=== PATIENT | male | born 1930 | race Caucasian/White ===

== ENCOUNTER 2017-09-21 12:40 | Emergency (ER) | payer OTHER ==
[~2017-09-21] VITALS: Ht 188 cm; Wt 57.0 kg
[~2017-09-21 12:40] MED LIST: CIPR500T87 PO
[2017-09-21 13:39] LABS: ANION GAP 9 mmol/L (5-15); CALCIUM 8.5 mg/dL (8.5-10.1); CHLORIDE 104 mmol/L (98-107); CREATININE 0.86 mg/dL (0.7-1.3)
[2017-09-21 13:44] LABS: BASOPHILS # (AUTO) 0.03 x10^3/uL (0-0.1); BASOPHILS % (AUTO) 0 % (0-1); EOSINOPHILS # (AUTO) 0.11 x10^3/uL (0-0.4); EOSINOPHILS % (AUTO) 1 % (1-7); LYMPHOCYTES # (AUTO) 1.26 x10^3/uL (1-3.4); LYMPHOCYTES % (AUTO) 11 % (22-44); MD NO; MEAN CORPUSCULAR HEMOGLOBIN 28.1 pg (27.5-34.5); MEAN CORPUSCULAR HGB CONC 33.1 g/dL (33.2-36.2); MEAN CORPUSCULAR VOLUME 84.8 fL (81-97); MONOCYTES # (AUTO) 0.49 x10^3/uL (0.2-0.8); MONOCYTES % (AUTO) 5 % (2-9); NEUTROPHILS % (AUTO) 83 % (42-75); PLATELET COUNT 382 x10^3/uL (130-400); RED CELL DISTRIBUTION WIDTH 17.1 % (9.4-14.8)
[2017-09-21] MEDS ORDERED: BICA50TA PO (14:52)
[2017-09-21] MEDS ORDERED: ASPI-650 PO (14:52)
[2017-09-21] MEDS ORDERED: ALLO300T PO (15:38)
[2017-09-21 16:05] LABS: MICROSCOPIC INDICATED
[2017-09-21 17:17] VITALS: BP 146/70
[2017-09-21 17:34] LABS: HEMOGLOBIN A1C 6.1 % (4.2-6.3)
== END 2017-09-21 17:34 | disposition home or self-care (01) ==
LOC: ED 16:55
DX: L89.151 Pressure ulcer of sacral region, stage 1 (principal); N30.90 Cystitis, unspecified without hematuria; E46 Unspecified protein-calorie malnutrition; E11.9 Type 2 diabetes mellitus without complications; I10 Essential (primary) hypertension; Z74.01 Bed confinement status
CPT/HCPCS: 36415; 80048; 81001; 82040; 83036; 85025; 99284